=== PATIENT | male | born 1985 | race Caucasian/White ===

== ENCOUNTER 2017-05-19 20:40 | Emergency (ER) | payer SELFPAY ==
[2017-05-19 21:09] LABS: Hematocrit 44 % (42-52); Hemoglobin 14.9 g/dl (14.0-18.0); Mean Corpuscular HGB Conc 34 g/dl (31-36); Mean Corpuscular Hemoglobin 29 pg (27-31); Mean Corpuscular Volume 87 fL (80-94); Mean Platelet Volume 8 um3 (7.4-10.4); Red Blood Count 5.07 10^6/ul (4.0-5.4); Red Cell Distribution Width 12 % (10.5-15); White Blood Count 17.5 10^3/ul (3.5-10.8)
[2017-05-19] MEDS ORDERED: Iohexol 300* (CONTRAST) 10 ML SDV IV ONE (21:18)
[2017-05-19 21:20] LABS: Albumin 4.6 g/dL (3.2-5.2); BUN/Creatinine Ratio 10.9 (8-20); Calcium 9.4 mg/dL (8.6-10.3); EGFR African American 92.3 (>60); EGFR Non-African American 71.8 (>60); Globulin 2.8 g/dL (2-4); Potassium 3.9 mmol/L (3.5-5.0); Total Bilirubin 0.4 mg/dL (0.2-1.0); Total Protein 7.4 g/dL (6.4-8.9)
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
[2017-05-19] MEDS ORDERED: NS 0.9% 1000 ML* 2,000 ML IV ONE (22:49)
[2017-05-19] MEDS ORDERED: Morphine INJ* 4 MG/ML 1 ML CARPUJECT IV ONE (23:42)
[2017-05-19] MEDS ORDERED: Metoclopramide IV* 5 MG/ML 2 ML VIAL IV ONE (23:43)
[2017-05-19] MEDS ORDERED: NS 0.9% 1000 ML* 1,000 ML IV ONE (23:44)
[2017-05-20 00:59] LABS: Urine Bacteria Absent (Absent); Urine Bilirubin Negative (Negative); Urine Glucose Negative (Negative); Urine Nitrite Negative (Negative)
[2017-05-20 01:06] LABS: Benzodiazepine Urine Screen None Detected (None Detect)
[2017-05-20 01:11] VITALS: BP 101/56
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
== END 2017-05-20 01:46 ==
LOC: ED 20:40
DX: S32.591A Other specified fracture of right pubis, initial encounter for closed fracture (principal); F10.129 Alcohol abuse with intoxication, unspecified; Y90.8 Blood alcohol level of 240 mg/100 ml or more; V47.5XXA Car driver injured in collision with fixed or stationary object in traffic accident, initial encounter; Y92.9 Unspecified place or not applicable; S32.129A Unspecified Zone II fracture of sacrum, initial encounter for closed fracture; G93.6 Cerebral edema
CPT/HCPCS: 36415; 70450; 71260; 72125; 74177; 80053; 80307; 80320; 81003; 81015; 82550; 83605; 84484; 85025; 85610; 96360; 96374; 96375; 99284; G0480; Q9967